=== PATIENT | female | born 1980 ===

== ENCOUNTER 2018-05-14 03:06 | Emergency (ER) | payer BC ==
[2018-05-14 03:39] VITALS: RESP 18; O2SAT 100
[2018-05-14] MEDS ORDERED: Sodium Chloride 0.9% 1,000 ML IV STA (03:53)
[2018-05-14 04:28] LABS: BASO % 0.3 % (0.0-2.0); EOS # 0.1 K/uL (0.0-0.7); EOS % 1.1 % (0.0-4.0); HEMOGLOBIN 13.7 g/dL (12.0-16.0); LYMPH # 1.3 K/uL (1.0-4.3); LYMPH % 17.5 % (20.0-40.0); MEAN CELL VOLUME 82.1 fl (81.0-99.0); MEAN CORPUSCULAR HEMOGLOBIN 27.8 pg (27.0-31.0); MEAN CORPUSCULAR HGB CONC 33.9 g/dL (33.0-37.0); MEAN PLATELET VOLUME 9.2 fl (7.2-11.7); MONO # 0.7 K/uL (0.0-0.8); NEUT # 5.4 K/uL (1.8-7.0); NEUT % 72.1 % (50.0-75.0); NRBC % 0.1 % (0.0-0.0); RBC 4.91 Mil/uL (3.80-5.20); WHITE BLOOD COUNT 7.6 K/uL (4.8-10.8)
[2018-05-14 04:35] LABS: ALB/GLOB RATIO 1.5 (1.0-2.1); ALBUMIN 4.2 g/dL (3.5-5.0); ALT/SGPT 36 U/L (9-52); AST/SGOT 40 U/L (14-36); BLOOD UREA NITROGEN 19 mg/dl (7-17); CALCIUM 9.5 mg/dL (8.4-10.2); GFR NON-AFRICAN AMERICAN > 60; LIPASE 176 U/L (23-300)
[2018-05-14 04:38] LABS: SQUAMOUS EPITHIAL 1 /hpf (0-5); URINE BACTERIA FEW (<OCC); URINE BILIRUBIN NEGATIVE (NEGATIVE); URINE BLOOD NEGATIVE (NEGATIVE); URINE CLARITY TURBID (Clear); URINE COLOR YELLOW (YELLOW); URINE GLUCOSE (UA) NEG (Normal); URINE LEUKOCYTE ESTERASE NEG Leu/uL (Negative); URINE PROTEIN NEGATIVE (NEGATIVE); URINE UROBILINOGEN 0.2-1.0 mg/dL (0.2-1.0)
--- NOTE | 2018-05-14 05:04 | ED PDOC ---
HPI: Abdomen Time Seen by Provider: 05/14/18 03:49 Chief Complaint (Nursing): Abdominal Pain Chief Complaint (Provider): RUQ Pain History Per: Patient History/Exam Limitations: no limitations Onset/Duration Of Symptoms: Hrs (x2) Current Symptoms Are (Timing): Still Present Additional Complaint(s): 38 year old female with pmhx of gallstones (as of 6 months ago) presents to the ED for evaluation of RUQ pain onset two hours ago, described as sharp and radiating to her back. Patient also reports nausea with non-bloody, non-bilious vomiting. Of note, she admits to eating fried chicken and cheese earlier today. PMD: none provided Past Medical History Reviewed: Historical Data, Nursing Documentation, Vital Signs Vital Signs: Last Vital Signs Temp 98.8 F 05/14/18 03:31 Pulse 71 05/14/18 03:31 Resp 18 05/14/18 03:31 BP 141/102 H 05/14/18 03:31 Pulse Ox 100 05/14/18 05:07 - Medical History PMH: Gall Bladder Disease (gallstones) - Surgical History Surgical History: No Surg Hx - Family History Family History: States: Unknown Family Hx - Social History Current smoker - smoking cessation education provided: No Alcohol: None Drugs: Denies - Home Medications Home Medications: Ambulatory Orders Medication Instructions Recorded Ondansetron ODT [Zofran ODT] 4 mg PO Q6 PRN #16 odt 05/14/18 - Allergies Allergies/Adverse Reactions: Allergies Allergy/AdvReac Type Severity Reaction Status Date / Time No Known Allergies Allergy Verified 05/14/18 03:31 Review of Systems ROS Statement: Except As Marked, All Systems Reviewed And Found Negative Gastrointestinal: Positive for: Nausea, Vomiting (non bloody, non bilious), Abdominal Pain (RUQ, sharp, radiating to back) Physical Exam - Reviewed Nursing Documentation Reviewed: Yes Vital Signs Reviewed: Yes - Physical Exam Appears: Positive for: Uncomfortable Head Exam: Positive for: ATRAUMATIC, NORMOCEPHALIC Skin: Positive for: Normal Color, Warm, Dry Eye Exam: Positive for: Normal appearance ENT: Positive for: Normal ENT Inspection Neck: Positive for: Normal, Painless ROM, Supple Cardiovascular/Chest: Positive for: Regular Rate, Rhythm Respiratory: Positive for: Normal Breath Sounds Gastrointestinal/Abdominal: Positive for: Tenderness (mild to RUQ), Other ( positive benitez's sign) Back: Positive for: Normal Inspection Extremity: Positive for: Normal ROM Neurologic/Psych: Positive for: Alert, Oriented (x3) - Laboratory Results Result Diagrams: 05/14/18 04:20 05/14/18 04:20 - ECG O2 Sat by Pulse Oximetry: 100 (RA) Pulse Ox Interpretation: Normal Medical Decision Making Medical Decision Making: Time: 351 Initial Impression: 38 year old female with RUQ pain and known cholelithiasis Initial Plan: --CMP --Lipase --Urine --CBC with differential --Normal saline IV --Pepcid 20mg IV --Zofran Inj 4mg IV --Toradol 30mg IV --Urinalysis --US gallbladder and pancreas 06 US gallbladder and pancreas FINDINGS: Liver: Unremarkable. There is hepatic pedal flow in the portal vein. Gallbladder: Multiple mobile gallstones a 2 mm gallbladder wall.There was no right upper quadrant tenderness during the sonographic examination. Correlation with patient's pain medication status is recommended. Common bile duct: Normal common bile duct measuring 3 mm. Pancreas: Artifacts: Limited due to bowel gas shadowing. Limited due to shadowing from the ribs. The pancreas is not well-seen. Right kidney: Normal. No mass. No hydronephrosis. IMPRESSION: Multiple mobile gallstones a 2 mm gallbladder wall.There was no right upper quadrant tenderness during the sonographic examination. Correlation with patient's pain medication status is recommended. 0615 Pt reports improvement in symptoms, stable for d/c with a diagnosis of cholelithiasis. She is to follow up at [facility] where she is a regular patient. A surgical referral will also be given to her. Scribe Attestation: Documented by Keyana Moreno, acting as a scribe for Danny Agarwal MD. Provider Scribe Attestation: All medical record entries made by the Scribe were at my direction and personally dictated by me. I have reviewed the chart and agree that the record accurately reflects my personal performance of the history, physical exam, medical decision making, and the department course for this patient. I have also personally directed, reviewed, and agree with the discharge instructions and disposition. Disposition - Clinical Impression Clinical Impression: Cholelithiasis - Patient ED Disposition Is Patient to be Admitted: No Counseled Patient/Family Regarding: Studies Performed, Diagnosis, Need For Followup - Disposition Referrals: Chet Bañuelos MD [Staff Provider] - Disposition: Routine/Home Disposition Time: 06:19 Condition: STABLE Prescriptions: Ondansetron ODT [Zofran ODT] 4 mg PO Q6 PRN #16 odt PRN Reason: Nausea/Vomiting Instructions: Gallstones Forms: [facility] (Portuguese) Print Language: ANGOLAN
[2018-05-14 06:59] VITALS: BP 109/64; PULSE 83; TEMP 98.5
--- NOTE | 2018-05-14 08:26 | US ---
Date of service: 05/14/2018 HISTORY: abd pain COMPARISON: None. TECHNIQUE: Sonographic evaluation of the right upper quadrant of the abdomen. FINDINGS: LIVER: Measures cm in length. Normal echogenicity of the liver parenchyma. No mass. No intrahepatic bile duct dilatation. GALLBLADDER: Cholelithiasis. COMMON BILE DUCT: Measures mm. No stones. No dilatation. PANCREAS: Unremarkable as visualized. No mass. No ductal dilatation. RIGHT KIDNEY: Measures cm in length. Normal echogenicity. No calculus, mass, or hydronephrosis. AORTA: No aneurysmal dilatation. IVC: Unremarkable. OTHER FINDINGS: None . IMPRESSION: Cholelithiasis.
== END 2018-05-14 07:00 | disposition home or self-care (01) ==
LOC: H.ER 03:06
DX: K80.20 Calculus of gallbladder without cholecystitis without obstruction (principal)
CPT/HCPCS: 76705; 80053; 81003; 81025; 83690; 85025; 99284; J1885; J2405; J7030